=== PATIENT | female | born 2000 | race African-American/Black ===

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

== ENCOUNTER 2019-05-03 14:56 | Emergency (ER) | payer OTHER ==
[~2019-05-03] VITALS: Ht 160 cm; Wt 68.0 kg
[~2019-05-03 14:56] MED LIST changes: +TYLENOL EXTRA500 MG PO; +ZOFRAN4 MG PO
[2019-05-03 15:15] LABS: URINE BILIRUBIN NEGATIVE (Negative); URINE BLOOD 2+ (Negative); URINE CLARITY CLEAR; URINE COLOR YELLOW; URINE GLUCOSE-RANDOM* NEGATIVE (Negative); URINE KETONES NEGATIVE (Negative); URINE LEUKOCYTES NEGATIVE (Negative); URINE NITRITE NEGATIVE (Negative); URINE PROTEIN (DIPSTICK) TRACE (Negative); URINE SPECIFIC GRAVITY 1.025 (1.005-1.035)
[2019-05-03] MEDS ORDERED: WELLBUTRIN XL300 MG PO (15:18)
[2019-05-03 15:34] LABS: ABSOLUTE NEUTROPHILS 3.6 thou/uL (1.4-8.2); BASOPHILS 0.9 % (0.0-2.0); EOSINOPHILS 1.2 % (0.0-3.0); HEMATOCRIT 40.4 % (37.0-47.0); HEMOGLOBIN 13.6 gm/dL (12.0-15.0); LYMPHOCYTES 34.2 % (24.0-44.0); MCH 31.2 pg (26.0-34.0); MCHC 33.6 g/dL (28.0-37.0); MCV 92.7 fL (80.0-100.0); MONOCYTES 6.3 % (1.0-8.0); PLATELET COUNT 309 thou/uL (150-400); POLYS 57.4 % (36.0-66.0); RBC 4.36 mil/uL (4.20-5.00); RDW 12.9 % (10.5-14.5); WBC 6.3 thou/uL (4.0-11.0)
[2019-05-03 15:36] LABS: CASTS None Seen /LPF (None Seen); MUCUS 0-3 Light strn/LPF (None Seen); SQUAMOUS >10 Many /LPF (0-3)
[2019-05-03 15:37] LABS: BACTERIA 1-9 Few /HPF (None Seen); CRYSTALS None Seen /LPF (None Seen); URINE RBC None Seen /HPF (0-2); URINE WBC 0-5 Rare /HPF (0-5)
[2019-05-03 15:42] LABS: CREATININE 0.8 mg/dL (0.6-1.0); POTASSIUM 3.6 mmol/L (3.5-5.1)
[2019-05-03 15:49] LABS: ALBUMIN 3.8 g/dL (3.4-5.0); TOTAL BILIRUBIN 0.4 mg/dL (<0.1-1.0); TOTAL PROTEIN 7.4 g/dL (6.4-8.2)
[2019-05-03 18:09] VITALS: BP 93/48
[2019-05-03] MEDS ORDERED: TYLENOL EXTRA500 MG PO (18:09)
[2019-05-03] MEDS ORDERED: ALEVE220 MG PO (18:09)
== END 2019-05-03 18:09 | disposition home or self-care (01) ==
LOC: ER 14:56
PROVIDERS: Emergency Medicine Emergency Medical Services
DX: N83.202 Unspecified ovarian cyst, left side (principal); F31.9 Bipolar disorder, unspecified; F17.210 Nicotine dependence, cigarettes, uncomplicated

== ENCOUNTER 2019-05-19 20:12 | Emergency (ER) | payer OTHER ==
[~2019-05-19] VITALS: Ht 170.2 cm; Wt 68.0 kg
[~2019-05-19 20:12] MED LIST changes: +ALEVE220 MG PO
[2019-05-19] MEDS ORDERED: TRAMADOL 50 MG50 MG PO (21:17)
[2019-05-19 21:43] VITALS: BP 109/77
== END 2019-05-19 21:45 | disposition home or self-care (01) ==
LOC: ER 20:12
DX: S70.11XA Contusion of right thigh, initial encounter (principal); F31.9 Bipolar disorder, unspecified; F17.210 Nicotine dependence, cigarettes, uncomplicated; V89.2XXA Person injured in unspecified motor-vehicle accident, traffic, initial encounter; Y93.89 Activity, other specified; Y92.488 Other paved roadways as the place of occurrence of the external cause; Y99.8 Other external cause status

== ENCOUNTER 2019-06-05 07:41 | Emergency (ER) | payer OTHER ==
[~2019-06-05] VITALS: Ht 170.2 cm; Wt 65.8 kg
[~2019-06-05 07:41] MED LIST changes: +TRAMADOL 50 MG50 MG PO
[2019-06-05 08:08] LABS: URINE BILIRUBIN NEGATIVE (Negative); URINE BLOOD 1+ (Negative); URINE CLARITY CLEAR; URINE COLOR YELLOW; URINE GLUCOSE-RANDOM* NEGATIVE (Negative); URINE KETONES NEGATIVE (Negative); URINE LEUKOCYTES-REFLEX 2+ (Negative); URINE NITRITE-REFLEX NEGATIVE (Negative); URINE PROTEIN (DIPSTICK) NEGATIVE (Negative); URINE UROBILINOGEN 0.2 E.U./dl (0.2-1.0)
[2019-06-05 08:28] LABS: ABSOLUTE NEUTROPHILS 9.9 thou/uL (1.4-8.2); BASOPHILS 0.4 % (0.0-2.0); HEMATOCRIT 37.7 % (37.0-47.0); HEMOGLOBIN 12.7 gm/dL (12.0-15.0); LYMPHOCYTES 13.3 % (24.0-44.0); MCH 31.5 pg (26.0-34.0); MCHC 33.7 g/dL (28.0-37.0); MCV 93.3 fL (80.0-100.0); MONOCYTES 8.3 % (1.0-8.0); PLATELET COUNT 279 thou/uL (150-400); RBC 4.04 mil/uL (4.20-5.00); RDW 12.6 % (10.5-14.5); WBC 12.7 thou/uL (4.0-11.0)
[2019-06-05 08:31] LABS: CALCIUM 8.9 mg/dL (8.5-10.1); CREATININE 0.8 mg/dL (0.6-1.0); POTASSIUM 3.9 mmol/L (3.5-5.1)
[2019-06-05 08:37] LABS: ALBUMIN 3.5 g/dL (3.4-5.0); TOTAL BILIRUBIN 0.5 mg/dL (<0.1-1.0); TOTAL PROTEIN 7.2 g/dL (6.4-8.2)
[2019-06-05 09:03] LABS: CASTS None Seen /LPF (None Seen); SQUAMOUS 4-10 Moderate /LPF (0-3)
[2019-06-05 09:04] LABS: CRYSTALS None Seen /LPF (None Seen); URINE RBC 0-2 Rare /HPF (0-2); URINE WBC-REFLEX >25 Many /HPF (0-5)
[2019-06-05] MEDS ORDERED: KEFLEX500 M1 PO (09:57)
[2019-06-05 10:09] VITALS: BP 101/60
[2019-06-06] MEDS ORDERED: TRAMADOL 50 MG50 MG PO (10:35)
[2019-06-06] MEDS ORDERED: NAPROSYN500 MG PO (10:35)
[2019-06-06] MEDS ORDERED: ONDANSETRON ODT4 MG PO (10:37)
== END 2019-06-05 10:16 | disposition home or self-care (01) ==
LOC: ER 07:41
PROVIDERS: Emergency Medicine
DX: N12 Tubulo-interstitial nephritis, not specified as acute or chronic (principal); F31.9 Bipolar disorder, unspecified; F17.210 Nicotine dependence, cigarettes, uncomplicated

== ENCOUNTER 2019-06-06 08:13 | Emergency (ER) | payer OTHER ==
[~2019-06-06] VITALS: Ht 170.2 cm; Wt 65.8 kg
[~2019-06-06 08:13] MED LIST changes: +KEFLEX500 M1 PO
[2019-06-06 09:03] LABS: URINE BILIRUBIN NEGATIVE (Negative); URINE BLOOD TRACE (Negative); URINE CLARITY SL CLOUDY; URINE COLOR YELLOW; URINE GLUCOSE-RANDOM* NEGATIVE (Negative); URINE KETONES 1+ (Negative); URINE LEUKOCYTES-REFLEX TRACE (Negative); URINE NITRITE-REFLEX NEGATIVE (Negative); URINE PROTEIN (DIPSTICK) 1+ (Negative); URINE SPECIFIC GRAVITY >= 1.030 (1.005-1.035); URINE UROBILINOGEN 0.2 E.U./dl (0.2-1.0)
[2019-06-06 09:25] LABS: HEMATOCRIT 37.7 % (37.0-47.0); HEMOGLOBIN 12.7 gm/dL (12.0-15.0); MCH 31.2 pg (26.0-34.0); MCHC 33.6 g/dL (28.0-37.0); MCV 92.7 fL (80.0-100.0); RBC 4.07 mil/uL (4.20-5.00); RDW 12.5 % (10.5-14.5); WBC 13.7 thou/uL (4.0-11.0)
[2019-06-06 09:26] LABS: BACTERIA-REFLEX 1-9 Few /HPF (None Seen); CASTS None Seen /LPF (None Seen); CRYSTALS None Seen /LPF (None Seen); SQUAMOUS >10 Many /LPF (0-3); URINE RBC 3-10 Few /HPF (0-2)
[2019-06-06 09:34] LABS: CALCIUM 8.9 mg/dL (8.5-10.1); CREATININE 0.8 mg/dL (0.6-1.0); POTASSIUM 3.3 mmol/L (3.5-5.1)
[2019-06-06] MEDS ORDERED: TRAMADOL 50 MG50 MG PO (10:35)
[2019-06-06] MEDS ORDERED: NAPROSYN500 MG PO (10:35)
[2019-06-06] MEDS ORDERED: ONDANSETRON ODT4 MG PO (10:37)
[2019-06-06 10:47] VITALS: BP 110/72
== END 2019-06-06 10:47 | disposition home or self-care (01) ==
LOC: ER 08:13
PROVIDERS: Emergency Medicine
DX: N10 Acute pyelonephritis (principal); R78.81 Bacteremia; R11.2 Nausea with vomiting, unspecified; F31.9 Bipolar disorder, unspecified

== ENCOUNTER 2019-08-21 20:35 | Emergency (ER) | payer OTHER ==
[~2019-08-21] VITALS: Ht 167.6 cm; Wt 68.0 kg
[~2019-08-21 20:35] MED LIST changes: +ONDANSETRON ODT4 MG PO
[2019-08-21 20:58] LABS: URINE BILIRUBIN NEGATIVE (Negative); URINE BLOOD 3+ (Negative); URINE CLARITY CLOUDY; URINE COLOR YELLOW; URINE GLUCOSE-RANDOM* NEGATIVE (Negative); URINE KETONES TRACE (Negative); URINE PROTEIN (DIPSTICK) TRACE (Negative); URINE UROBILINOGEN 0.2 E.U./dl (0.2-1.0)
[2019-08-21 21:00] LABS: URINE LEUKOCYTES-REFLEX 2+ (Negative); URINE NITRITE-REFLEX POSITIVE (Negative)
[2019-08-21 21:41] LABS: ABSOLUTE NEUTROPHILS 5.9 thou/uL (1.4-8.2); BASOPHILS 0.7 % (0.0-2.0); EOSINOPHILS 1.4 % (0.0-3.0); HEMATOCRIT 40.3 % (37.0-47.0); HEMOGLOBIN 13.7 gm/dL (12.0-15.0); LYMPHOCYTES 31.4 % (24.0-44.0); MCH 31.3 pg (26.0-34.0); MCHC 33.9 g/dL (28.0-37.0); MCV 92.3 fL (80.0-100.0); MONOCYTES 6.6 % (1.0-8.0); PLATELET COUNT 314 thou/uL (150-400); POLYS 59.9 % (36.0-66.0); RBC 4.37 mil/uL (4.20-5.00); RDW 13.1 % (10.5-14.5); WBC 9.9 thou/uL (4.0-11.0)
[2019-08-21 21:44] LABS: CALCIUM 9.3 mg/dL (8.5-10.1); CREATININE 0.8 mg/dL (0.6-1.0)
[2019-08-21 21:46] LABS: SQUAMOUS 4-10 Moderate /LPF (0-3)
[2019-08-21 21:47] LABS: CASTS None Seen /LPF (None Seen); CRYSTALS None Seen /LPF (None Seen); MUCUS 0-3 Light strn/LPF (None Seen); URINE RBC >20 Many /HPF (0-2); WBC CLUMPS Moderate (None Seen)
[2019-08-22] MEDS ORDERED: MACROBID 100 M100 M1 PO (00:48)
[2019-08-22] MEDS ORDERED: NORCO 5-325 TA1 EAC1 PO (00:48)
[2019-08-22] MEDS ORDERED: SENNA-DOCUSATE1 EAC1 PO (00:48)
[2019-08-22] MEDS ORDERED: ZOFRAN ODT4 MG PO (00:48)
[2019-08-22] MEDS ORDERED: IBUPROFEN 600600 M1 PO (00:48)
[2019-08-22 00:58] VITALS: BP 105/50
== END 2019-08-22 00:59 | disposition home or self-care (01) ==
LOC: ER 20:35
PROVIDERS: Emergency Medicine
DX: N10 Acute pyelonephritis (principal); R11.2 Nausea with vomiting, unspecified; F31.9 Bipolar disorder, unspecified; F17.210 Nicotine dependence, cigarettes, uncomplicated

== ENCOUNTER 2019-10-31 15:19 | Emergency (ER) | payer OTHER ==
[~2019-10-31] VITALS: Ht 170.2 cm; Wt 68.0 kg
[~2019-10-31 15:19] MED LIST changes: +MACROBID 100 M100 M1 PO; +NORCO 5-325 TA1 EAC1 PO; +SENNA-DOCUSATE1 EAC1 PO; +ZOFRAN ODT4 MG PO
[2019-10-31 15:20] VITALS: BP 117/81
[2019-10-31] MEDS ORDERED: NAPROSYN500 MG PO (16:08)
== END 2019-10-31 16:18 | disposition home or self-care (01) ==
LOC: ER 15:19
DX: M79.642 Pain in left hand (principal); M25.532 Pain in left wrist; M79.645 Pain in left finger(s); F17.210 Nicotine dependence, cigarettes, uncomplicated; Z79.899 Other long term (current) drug therapy; W51.XXXA Accidental striking against or bumped into by another person, initial encounter; Y93.89 Activity, other specified; Y92.89 Other specified places as the place of occurrence of the external cause; Y99.8 Other external cause status

== ENCOUNTER 2019-12-15 07:27 | Emergency (ER) | payer OTHER ==
[~2019-12-15] VITALS: Ht 170.2 cm; Wt 68.0 kg
[2019-12-15 08:24] LABS: URINE BILIRUBIN NEGATIVE (Negative); URINE BLOOD 2+ (Negative); URINE CLARITY CLEAR; URINE COLOR YELLOW; URINE GLUCOSE-RANDOM* NEGATIVE (Negative); URINE KETONES 1+ (Negative); URINE PROTEIN (DIPSTICK) 2+ (Negative); URINE SPECIFIC GRAVITY >= 1.030 (1.005-1.035); URINE UROBILINOGEN 0.2 E.U./dl (0.2-1.0)
[2019-12-15 08:25] LABS: URINE LEUKOCYTES-REFLEX 2+ (Negative); URINE NITRITE-REFLEX POSITIVE (Negative)
[2019-12-15 08:26] LABS: HEMATOCRIT 42.1 % (37.0-47.0); HEMOGLOBIN 14.6 gm/dL (12.0-15.0); MCH 31.7 pg (26.0-34.0); MCHC 34.7 g/dL (28.0-37.0); MCV 91.4 fL (80.0-100.0); PLATELET COUNT 288 thou/uL (150-400); RBC 4.61 mil/uL (4.20-5.00); WBC 21.7 thou/uL (4.0-11.0)
[2019-12-15 08:33] LABS: CALCIUM 8.7 mg/dL (8.5-10.1); CREATININE 1.1 mg/dL (0.6-1.0); POTASSIUM 3.6 mmol/L (3.5-5.1)
[2019-12-15 08:34] LABS: CASTS None Seen /LPF (None Seen); RENAL EPITHELIAL CELLS 0-3 Few /LPF (None Seen); SQUAMOUS >10 Many /LPF (0-3); URINE WBC-REFLEX >25 Many /HPF (0-5)
[2019-12-15 08:35] LABS: BACTERIA-REFLEX >30 Many /HPF (None Seen); CRYSTALS None Seen /LPF (None Seen); TRANSITIONAL EPITHEL CELL 0-3 Few /LPF (None Seen); WBC CLUMPS Few (None Seen)
[2019-12-15 08:37] LABS: URINE RBC 3-10 Few /HPF (0-2)
[2019-12-15 08:40] LABS: ALBUMIN 3.7 g/dL (3.4-5.0); TOTAL BILIRUBIN 0.9 mg/dL (<0.1-1.0); TOTAL PROTEIN 8.4 g/dL (6.4-8.2)
[2019-12-15 08:47] LABS: ABSOLUTE NEUTROPHILS 18.7 thou/uL (1.4-8.2); PLATELET ESTIMATE NORMAL
[2019-12-15 11:29] VITALS: BP 108/70
== END 2019-12-15 11:29 | disposition short-term general hospital (02) ==
LOC: ER 07:27
PROVIDERS: Emergency Medicine
DX: A41.9 Sepsis, unspecified organism (principal); N12 Tubulo-interstitial nephritis, not specified as acute or chronic; R11.2 Nausea with vomiting, unspecified; J02.9 Acute pharyngitis, unspecified; R51 Headache; F17.210 Nicotine dependence, cigarettes, uncomplicated; Z79.899 Other long term (current) drug therapy

== ENCOUNTER 2020-04-17 04:51 | Emergency (ER) | payer OTHER ==
[~2020-04-17] VITALS: Ht 167.6 cm; Wt 77.1 kg
[2020-04-17] MEDS ORDERED: UNISOM25 MG PO (05:00)
[2020-04-17] MEDS ORDERED: APAP W/CODEINE1 TA2 PO (05:15)
[2020-04-17 05:21] VITALS: BP 114/70
== END 2020-04-17 05:22 | disposition home or self-care (01) ==
LOC: ER 04:51
DX: H57.12 Ocular pain, left eye (principal); F17.210 Nicotine dependence, cigarettes, uncomplicated; Z79.1 Long term (current) use of non-steroidal anti-inflammatories (NSAID); Z79.899 Other long term (current) drug therapy

== ENCOUNTER 2021-02-02 11:12 | Emergency (ER) | payer OTHER ==
[~2021-02-02] VITALS: Ht 167.6 cm; Wt 77.1 kg
[~2021-02-02 11:12] MED LIST changes: +APAP W/CODEINE1 TA2 PO; +UNISOM25 MG PO
[2021-02-02] MEDS ORDERED: SEROQUEL 25 MG25 M1 PO (11:28)
[2021-02-02 11:40] LABS: URINE BILIRUBIN NEGATIVE (Negative); URINE BLOOD 3+ (Negative); URINE CLARITY SL CLOUDY; URINE COLOR YELLOW; URINE GLUCOSE-RANDOM* NEGATIVE (Negative); URINE KETONES NEGATIVE (Negative); URINE NITRITE-REFLEX NEGATIVE (Negative); URINE PROTEIN (DIPSTICK) NEGATIVE (Negative); URINE SPECIFIC GRAVITY 1.025 (1.005-1.035); URINE UROBILINOGEN 0.2 E.U./dl (0.2-1.0)
[2021-02-02 11:41] LABS: URINE LEUKOCYTES-REFLEX 1+ (Negative)
[2021-02-02 11:47] LABS: ABSOLUTE NEUTROPHILS 7.6 thou/uL (1.4-8.2); BASOPHILS 0.6 % (0.0-2.0); EOSINOPHILS 1.7 % (0.0-3.0); HEMOGLOBIN 14.3 gm/dL (12.0-15.0); MCH 32.4 pg (26.0-34.0); MCHC 34.2 g/dL (28.0-37.0); MCV 94.8 fL (80.0-100.0); MONOCYTES 9.8 % (1.0-8.0); PLATELET COUNT 345 thou/uL (150-400); POLYS 65.9 % (36.0-66.0); RBC 4.43 mil/uL (4.20-5.00); RDW 13.4 % (10.5-14.5); WBC 11.5 thou/uL (4.0-11.0)
[2021-02-02 11:57] LABS: CALCIUM 8.7 mg/dL (8.5-10.1); CREATININE 0.9 mg/dL (0.6-1.0); POTASSIUM 3.9 mmol/L (3.5-5.1)
[2021-02-02 12:39] LABS: SQUAMOUS >10 Many /LPF (0-3)
[2021-02-02 12:40] LABS: CASTS None Seen /LPF (None Seen); CRYSTALS None Seen /LPF (None Seen)
[2021-02-02 12:41] LABS: URINE RBC 3-10 Few /HPF (NONE SEEN)
[2021-02-02] MEDS ORDERED: PYRIDIUM200 MG PO (13:00)
[2021-02-02] MEDS ORDERED: CEPHALEXIN500 MG PO (13:00)
[2021-02-02] MEDS ORDERED: ZOFRAN ODT4 MG PO (13:00)
[2021-02-02 13:14] VITALS: BP 97/64
== END 2021-02-02 13:14 | disposition home or self-care (01) ==
LOC: ER 11:12
PROVIDERS: Emergency Medicine
DX: N39.0 Urinary tract infection, site not specified (principal); F17.210 Nicotine dependence, cigarettes, uncomplicated